=== PATIENT | female | born 1970 | race American Indian/Alaskan Native ===

== ENCOUNTER 2019-02-17 09:21 | Outpatient (CLI) | payer MEDICARE ==
[2019-02-21 13:43] LABS: Vitamin D, 25-OH, D2 <4 ng/mL
[2019-02-23 12:37] LABS: ANA Screen, IFA Negative (Negative)
== END 2019-02-17 09:22 | disposition home or self-care (01) ==
LOC: LAB 09:21
PROVIDERS: ATTEND Specialist
DX: E11.42 Type 2 diabetes mellitus with diabetic polyneuropathy (principal); G62.9 Polyneuropathy, unspecified; G65.1 Sequelae of other inflammatory polyneuropathy
CPT/HCPCS: 36415; 82306; 82607; 82747; 83921; 84443; 85652; 86038; 86225; 86592